=== PATIENT | female | born 1985 | race Caucasian/White ===

== ENCOUNTER 2023-01-25 23:37 | Emergency (ER) | payer OTHER ==
--- NOTE | 2023-01-25 23:46 | ED Lower Extremity ---
General Chief Complaint: Lower Extremity Stated Complaint: ANKLE INJ History of Present Illness Date Seen by Provider: Jan 25, 2023 Time Seen by Provider: 23:44 Initial Comments 37 yr F is here with c/o right ankle pain and swelling, after she tried to jump on a hay bale after having too much to drink. Pt jumped on top of it and then fell off it, injuring her right ankle.Pt is unable to bear weight. Allergies and Home Medications Allergies Coded Allergies: Sulfa (Sulfonamide Antibiotics) (Verified Allergy, Unknown, 01/25/23) acetaminophen (Verified Allergy, Unknown, 01/25/23) doxycycline (Verified Allergy, Unknown, 01/25/23) oxycodone (Verified Allergy, Unknown, 01/25/23) Patient Home Medication List Home Medication List Reviewed: Yes Review of Systems Constitutional: no symptoms reported EENTM: no symptoms reported Respiratory: no symptoms reported Cardiovascular: no symptoms reported Gastrointestinal: no symptoms reported Genitourinary: no symptoms reported Musculoskeletal: joint pain, joint swelling Skin: no symptoms reported Psychiatric/Neurological: No Symptoms Reported Physical Exam Vital Signs Vital Signs - First Documented 01/25/23 23:37 Pulse 97 Resp 18 B/P (MAP) 126/64 (84) Pulse Ox 99 O2 Delivery Room Air Capillary Refill : Height, Weight, BMI Height: '" Weight: lbs. oz. kg; BMI Method: General Appearance: WD/WN, no apparent distress HEENT: PERRL/EOMI Neck: full range of motion Knees: right knee non-tender, right knee normal inspection, right knee normal range of motion, right knee no evidence of injury Ankles: right ankle limited range of motion, right ankle pain, right ankle soft tissue tenderness, right ankle swelling (Swelling greater in the lateral malleolus area), right ankle other (NV bundle intact) Feet: right foot non-tender, right foot normal inspection, right foot normal range of motion, right foot no evidence of injury Neurologic/Tendon: normal sensation, normal motor functions, normal tendon functions Neurologic/Psychiatric: no motor/sensory deficits, alert, oriented x 3 Skin: normal color Progress/Results/Core Measures Results/Orders My Orders Orders - DASH NASCIMENTO MD Ankle 3 View Right (01/25/23 23:48) Ice: Apply To Affected Area (01/25/23 23:54) Ketorolac Injection (Toradol Injection) (01/26/23 00:15) Tramadol Tablet (Ultram Tablet) (01/26/23 00:15) Crutches (01/26/23 00:16) Medications Given in ED Current Medications Medications Dose Ordered Sig/Jadon Route Start Time Stop Time Status Last Admin Dose Admin Ketorolac Tromethamine 30 mg ONCE ONCE IM 01/26/23 00:15 01/26/23 00:21 DC 01/26/23 00:31 30 MG Tramadol HCl 50 mg TID PRN PO 01/26/23 00:15 01/26/23 00:31 50 MG Vital Signs/I&O 01/25/23 23:37 Pulse 97 Resp 18 B/P (MAP) 126/64 (84) Pulse Ox 99 O2 Delivery Room Air Progress Progress Note : Progress Note 1. RIGHT ANKLE BI-MALLEOLAR FRACTURE: - XR RIGHT ANKLE: Bi-malleolar fracture, non-displaced, closed fracture. X-ray read by me as there is no XR radiology reads after 10PM - Ice application - Toradol injection given in ER with good pain control - Crutches/ above knee splint - Take home pack of Tramadol for pain - Advised ice application - Non-weight bearing - Elevation of leg when sitting advised - Discussed with Ortho consult from [facility], SONYA Martinez from [facility], and advised pt to follow up tomorrow with [facility], in their walk-in clinic between 8:30 AM- 5:30 PM: [id number] [employer] Departure Communication (Admissions) Time/Spoke to Consulting Phy: 00:25 Discussed with Ortho consult from [facility]: Impression Primary Impression: Closed bimalleolar fracture of right ankle Qualified Codes: S82.841A - Displaced bimalleolar fracture of right lower leg, initial encounter for closed fracture Disposition: 01 HOME, SELF-CARE Condition: Improved Departure-Patient Inst. Referrals: NO,LOCAL PHYSICIAN (PCP/Family) Primary Care Physician Patient Instructions: Ankle Fracture ED, Going Up and Down Curbs or Stairs With a Walker or Crutches, SPLINT CARE Add. Discharge Instructions: - Follow up tomorrow with [facility], in their walk-in clinic between 8:30 AM- 5:30 PM: [facility] - Crutches/ above knee splint - Take home pack of Tramadol for pain - Advised ice application - Non-weight bearing - Elevation of leg when sitting advised All discharge instructions reviewed with patient and/or family. Voiced understanding. DASH NASCIMENTO MD Jan 25, 2023 23:46
[2023-01-26] MEDS ORDERED: KETOROLAC 30 MG/ML VIAL IM ONE (00:15)
[2023-01-26 00:58] VITALS: BP 126/64
--- NOTE | 2023-01-26 08:04 | Diagnostic Imaging Report ---
INDICATION: Fall with right ankle injury AP, oblique and lateral views of the right ankle reveal extensive ankle swelling. There are mildly displaced fractures involving the medial and lateral malleoli with widening of the medial ankle mortise. No other definite fracture is seen. There is a small posterior plantar calcaneal enthesophyte. IMPRESSION: Mildly displaced bimalleolar ankle fracture suggestive of associated ligamentous injury. Dictated by: Dictated on workstation # [id number]
== END 2023-01-26 00:59 | disposition home or self-care (01) ==
LOC: ER FS 23:45
DX: S82.844A Nondisplaced bimalleolar fracture of right lower leg, initial encounter for closed fracture (principal); Z88.5 Allergy status to narcotic agent; Z28.310 Unvaccinated for COVID-19; W17.89XA Other fall from one level to another, initial encounter; Y93.39 Activity, other involving climbing, rappelling and jumping off
CPT/HCPCS: 29505; 73610

== ENCOUNTER 2023-01-29 05:31 | Outpatient (CLI) | payer OTHER ==
[~2023-01-29] VITALS: Ht 160 cm; Wt 88.6 kg
[2023-01-30] MEDS ORDERED: HYDR-3820 PO (10:49)
[2023-01-30] MEDS ORDERED: DESV100T PO (10:49)
[2023-01-30] MEDS ORDERED: DIPH25CA79 PO (10:49)
[2023-01-30] MEDS ORDERED: RT-ALBUINH INH (10:57)
== END 2023-01-30 11:11 | disposition home or self-care (01) ==
LOC: PREOP 05:31
PROVIDERS: ATTEND Orthopaedic Surgery
DX: Z01.818 Encounter for other preprocedural examination (principal)

== ENCOUNTER 2023-02-04 07:02 | Day surgery (SDC) | payer OTHER ==
--- NOTE | 2023-01-29 09:13 | HISTORY AND PHYSICAL ---
ADMISSION HISTORY AND PHYSICAL This will be for outpatient surgery on 02/04/2023 for open reduction and internal fixation of her right ankle. HISTORY: The patient is a 37-year-old female, who fell off of the [ ] on 01/25/2023. She was seen in the emergency room in [place] and was found to have a bimalleolar ankle fracture. 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 REVIEW OF SYSTEMS: No chest pain, no shortness of breath. No dysuria. PAST MEDICAL HISTORY: Denies past surgeries. ALLERGIES: NO KNOWN DRUG ALLERGIES. SOCIAL HISTORY: The patient denies tobacco use. Drinks alcohol socially. PHYSICAL EXAMINATION: GENERAL: The patient is well-developed, well-nourished, in no acute distress. HEENT: Normocephalic, atraumatic. Pupils equal, round and reactive to light. Oropharynx is clear. NECK: Supple. No lymphadenopathy. LUNGS: Clear to auscultation bilaterally. HEART: Regular rate and rhythm. ABDOMEN: Soft, nontender, nondistended. EXTREMITIES: Her right ankle demonstrates tenderness of her medial and lateral malleoli. There is moderate swelling. Brisk capillary refill with symmetric pulses. She has intact dorsiflexion and plantarflexion of the toes. IMPRESSION: Bimalleolar ankle fracture, right ankle displaced. PLAN: Open reduction and internal fixation of the right medial and lateral malleolus. The risks, benefits, options, ramifications and recovery have been discussed at length with the patient. She understands and wishes to proceed. Job ID: [id number] DocumentID: [id number] Dictated Date: 01/26/2023 16:16:44 Insurance Underwriter Sales Date: 01/26/2023 20:03:00 Dictated By: ADARSH ESTEVES MD
[~2023-02-04] VITALS: Ht 160 cm; Wt 88.6 kg
[2023-02-04] VITALS (11 sets, daily range): BP systolic 123–160; BP diastolic 79–97
[~2023-02-04 07:02] MED LIST: DESV100T PO; DIPH25CA79 PO; HYDR-3820 PO; RT-ALBUINH INH
[2023-02-04] MEDS ORDERED: HYDROcodone/APAP 7.5 MG/325 MG (LORTAB, LORCET PLUS) TABLET PO PRN (07:30)
[2023-02-04] MEDS ORDERED: ceFAZolin INJECTION 2,000 MG in NS (IVPB) 50 ML IV ONE (07:30)
[2023-02-04] MEDS ORDERED: LACTATED RINGERS 1,000 ML IV PRN (07:30)
[2023-02-04] MEDS ORDERED: HYDR-3820 PO (07:30)
--- NOTE | 2023-02-04 07:39 | Progress Note-Pre Operative ---
Pre-Operative Progress Note Date of Available H&P: Jan 29, 2023 Date H&P Reviewed: Feb 04, 2023 Time H&P Reviewed: 07:38 Changes from last HP none Pre-Operative Diagnosis: right bimalleolar ankle fracture ADARSH ESTEVES MD Feb 04, 2023 07:39
--- NOTE | 2023-02-04 07:39 | Progress Note-Post Operative ---
Post-Operative Progess Note Surgeon (s)/Rn Vascular (s) Surgeon ADARSH ESTEVES MD Rn Vascular: Addison Garcia Pre-Operative Diagnosis right bimalleolar ankle fracture Post-Operative Diagnosis right bimalleolar ankle fracture Procedure & Operative Findings Date of Procedure 02/04/23 Procedure Performed/Findings ORIF right medial and lateral malleoli Anesthesia Type GETA Estimated Blood Loss Estimated blood loss (mL): minimal Specimens/Packing Specimens Removed none Packing: none ADARSH ESTEVES MD Feb 04, 2023 07:39
[2023-02-04] MEDS ORDERED: BUPIVACAINE 0.5% 30 ML (SENSORCAINE) VIAL ONE (08:57)
[2023-02-04] MEDS ORDERED: fentaNYL INJ 100 MCG/2 ML AMP ONE (08:58)
[2023-02-04] MEDS ORDERED: proPOfol 200 MG/20 ML (DIPRIVAN) VIAL IV ONE (08:58)
[2023-02-04] MEDS ORDERED: LIDOCAINE PF 2% 5 ML (XYLOCAINE) VIAL ONE (08:58)
[2023-02-04] MEDS ORDERED: MIDAZOLAM 2 MG/2 ML (VERSED) VIAL ONE (08:58)
[2023-02-04] MEDS ORDERED: HYDROmorphone 2 MG/ML VIAL (DILAUDID) IV ONE (10:45)
[2023-02-04] MEDS ORDERED: morphine INJ 10 MG/ML 1ML (SYR OR VIAL) IVP ONE (10:45)
[2023-02-04] MEDS ORDERED: PROMETHAZINE INJ 25 MG/ML (PHENERGAN) AMP IVP ONE (10:45)
[2023-02-04] MEDS ORDERED: ONDANSETRON 4 MG/2 ML (SDV) Z0FRAN IVP PRN (10:45)
[2023-02-04] MEDS ORDERED: morphine INJ 10 MG/ML 1ML (SYR OR VIAL) ONE (10:46)
--- NOTE | 2023-02-04 10:46 | Anesthesia-General Post-Op ---
General Patient Condition Mental Status/LOC: Same as Preop Cardiovascular: Satisfactory Nausea/Vomiting: Absent Respiratory: Satisfactory Pain: Controlled Complications: Absent Post Op Complications Complications None Follow Up Care/Instructions Patient Instructions None needed. Anesthesia/Patient Condition Patient Condition Patient is doing well, no complaints, stable vital signs, no apparent adverse anesthesia problems. No complications reported per nursing. ANANT POOLE CRNA Feb 04, 2023 10:46
[2023-02-04] MEDS ORDERED: ONDANSETRON 4 MG/2 ML (SDV) Z0FRAN ONE (10:52)
[2023-02-04] MEDS ORDERED: KETOROLAC 30 MG/ML VIAL ONE (10:52)
[2023-02-04] MEDS ORDERED: SEVOFLURANE (ULTANE) 15 ML INHAL SOLN ONE (10:52)
[2023-02-04] MEDS ORDERED: HYDROmorphone 2 MG/ML VIAL (DILAUDID) ONE (11:04)
--- NOTE | 2023-02-04 14:18 | Diagnostic Imaging Report ---
Indication: Fracture. Follow-up. COMPARISON: 01/25/2023 Total fluoroscopy time: 41 seconds Total number fluoroscopic images saved: 3 FINDINGS: Multiple intraoperative image intensifier 5 views of the right ankle were obtained. Images provided show placement of orthopedic side plate and screws along lateral margins of the distal fibula. 2 partially threaded screws are also seen traversing the medial malleolus. The alignment of the fracture fragments appears appropriate. Please note, interpreting radiologist was not present during the procedure. IMPRESSION:. Intraoperative fluoroscopic guidance provided as above. Dictated by: Dictated on workstation # [id number]
--- NOTE | 2023-02-04 16:15 | OPERATIVE REPORT ---
DATE OF SERVICE: 02/04/2023 PREOPERATIVE DIAGNOSIS: Right ankle bimalleolar fracture. POSTOPERATIVE DIAGNOSIS: Right ankle bimalleolar fracture. PROCEDURE: 1. Open reduction and internal fixation of right medial malleolus. 2. Open reduction and internal fixation, right lateral malleolus. SURGEON: Brad Esteves MD IMPLEMENTATION CONSULTANT: Addison Garcia, who assisted throughout the procedure and closed the incisions. ANESTHESIA: General endotracheal by Kary Parmar CRNA. TOURNIQUET TIME: Approximately 52 minutes at 300 mmHg. ESTIMATED BLOOD LOSS: Minimal. DRAINS: None. COMPLICATIONS: None. POSTOPERATIVE PLAN: Toe touch weightbearing for 2 weeks and then progressive weightbearing as tolerated. The patient was transferred to recovery room awake and stable condition. MATERIALS: Synthes distal fibular plate and two 4.0 partially threaded cancellous screws medially. STATEMENT OF MEDICAL NECESSITY: The patient is a 37-year-old female who fell while climbing on hay davin and sustained a bimalleolar ankle fracture. Due to the displaced nature of the fracture and unstable fracture pattern, the patient elected to proceed with surgical intervention. DESCRIPTION OF PROCEDURE: After risks and benefits of the procedure were discussed and questions were answered and informed consent was signed and placed on the chart, the operative site was confirmed in the preoperative holding area initialed by surgeon. The patient was then transported to the operating room and after adequate levels of general endotracheal anesthetic were obtained, a timeout was called, confirming the operative site. The right lower extremity was prepped and draped in the usual sterile fashion with the leg elevated and the knee flexed and tourniquet inflated to 300 mmHg. Standard lateral approach was utilized for the distal fibula. The underlying soft tissues were carefully dissected. The fracture was identified and reduced anatomically. A 2.7 cortical screw was placed in a lag fashion across the fracture site with excellent purchase obtained. A distal fibular plate was then placed with 3 cortical screws proximally and 4.0 cancellous screws distally, all with excellent purchase. Fluoroscopy in the AP and lateral, oblique planes revealed anatomic reduction of the fracture with well placed hardware. This wound was then copiously irrigated and closed with 2-0 Vicryl in subcutaneous layer and skin was closed with 4-0 nylon in vertical mattress interrupted fashion. An incision was then made over the medial malleolus underlying soft tissues were carefully dissected. Fracture was anatomically reduced under direct visualization and confirmed reduced under fluoroscopic visualization, two 4.0 partially threaded cancellous screws were then placed in standard fashion, perpendicular to the fracture site. Both had excellent purchase and fluoroscopy in AP, lateral and oblique planes revealed well-reduced fracture with well placed hardware. The wound was copiously irrigated and a 2-0 Vicryl was used to reapproximate subcutaneous layer and skin was closed with 4-0 nylon in vertical mattress interrupted fashion. The incisions were infiltrated with plain Marcaine. A soft dressing and boot were applied. The tourniquet was deflated. The patient was transferred to recovery room awake and in stable condition. Job ID: [id number] DocumentID: [id number] Dictated Date: 02/04/2023 10:40:42 Gandy Dancer Date: 02/04/2023 16:13:00 Dictated By: BRAD ESTEVES MD
== END 2023-02-04 13:15 | disposition home or self-care (01) ==
LOC: SDC 07:02
PROVIDERS: ATTEND Orthopaedic Surgery
DX: S82.841A Displaced bimalleolar fracture of right lower leg, initial encounter for closed fracture (principal); E66.9 Obesity, unspecified; Z68.35 Body mass index [BMI] 35.0-35.9, adult; Z87.891 Personal history of nicotine dependence; Z68.34 Body mass index [BMI] 34.0-34.9, adult; W19.XXXA Unspecified fall, initial encounter
CPT/HCPCS: 27814; 76000; 84703; 87081; C1713 ×8

== ENCOUNTER → 2023-06-22 | Outpatient (CLI) | payer OTHER ==
[~2023-06-22] VITALS: Ht 160 cm; Wt 92.3 kg
[~2023-06-22] MED LIST changes: +MELO15TA39 PO; +METF-397 PO
== END | disposition home or self-care (01) ==
LOC: PREOP 05:33
PROVIDERS: ATTEND Obstetrics & Gynecology
DX: Z01.818 Encounter for other preprocedural examination (principal)